=== PATIENT | female | born 1990 | race African-American/Black ===

== ENCOUNTER 2020-12-31 03:05 | Emergency (ER) | payer OTHER ==
[~2020-12-31] VITALS: Ht 157.5 cm; Wt 102.5 kg
--- NOTE | 2020-12-31 03:32 | NUR ---
XRAY AT BEDSIDE
--- NOTE | 2020-12-31 03:37 | NUR ---
PT BIB PARTNER, C/O PAIN ON HER LEFT BIG TOE. PT VERBALIZED THAT SHE TRIPPED AND FELL AFTER A NIGHT OUT OF DRINKING. UPON ASSESSMENT PT IS A/O X4. PT APPEARS ANXIOUS. UPON ASSESSMENT, NAIL OF LEFT BIG TOE IS SPLIT, PARTIALLY COMING OFF NAIL BED. PT ON MONITOR. VSS. WILL CONT TO MONITOR.
[2020-12-31] MEDS ORDERED: IBUPROFEN 400 MG TABLET ONE (04:09)
[2020-12-31] MEDS ORDERED: TDAP [DIPH/PERTUSSIS/TET] 0.5 ML VIAL IM ONE (04:10)
[2020-12-31] MEDS: IBUPROFEN 400 MG TABLET PO ONE (04:12)
[2020-12-31] MEDS: TDAP [DIPH/PERTUSSIS/TET] 0.5 ML VIAL IM ONE (04:12)
--- NOTE | 2020-12-31 04:40 | NUR ---
tdap and medications for pain adminsitered as ordered. dressing for left toe done with emt at bedside. Patient discharged to home in stable condition. Written and verbal after care instructions given. Patient verbalizes understanding of instruction.
[2020-12-31 04:43] VITALS: BP 129/75
== END 2020-12-31 04:44 | disposition home or self-care (01) ==
LOC: ER 03:12
DX: S90.212A Contusion of left great toe with damage to nail, initial encounter (principal); Z98.890 Other specified postprocedural states; W18.39XA Other fall on same level, initial encounter; Y93.89 Activity, other specified; Y92.89 Other specified places as the place of occurrence of the external cause; Y99.8 Other external cause status
CPT/HCPCS: 73660; 90471; 90715; 99283; A6403